=== PATIENT | female | born 1985 | race Caucasian/White ===

== ENCOUNTER → 2019-02-08 | Outpatient (CLI) | payer BC ==
[~2019-02-08] MED LIST: LORA10TA75 PO; META800T PO; TOPI25TA8 PO
[2019-02-08 13:34] LABS: BASOPHILS # (AUTO) 0.02 x10^3/uL (0-0.1); BASOPHILS % (AUTO) 0 % (0-1); EOSINOPHILS # (AUTO) 0.23 x10^3/uL (0-0.4); EOSINOPHILS % (AUTO) 2 % (1-7); LYMPHOCYTES # (AUTO) 1.49 x10^3/uL (1-3.4); LYMPHOCYTES % (AUTO) 15 % (22-44); MD NO; MEAN CORPUSCULAR HGB CONC 34.9 g/dL (32.4-35.8); MEAN CORPUSCULAR VOLUME 91.8 fL (80-100); MEAN PLATELET VOLUME 8.5 fL (7.4-10.4); MONOCYTES # (AUTO) 0.39 x10^3/uL (0.2-0.8); MONOCYTES % (AUTO) 4 % (2-9); NEUTROPHILS # (AUTO) 7.53 x10^3/uL (1.8-6.8); NEUTROPHILS % (AUTO) 78 % (42-75); PLATELET COUNT 310 x10^3/uL (130-400); RED BLOOD COUNT 4.75 x10^6/uL (3.82-5.3); RED CELL DISTRIBUTION WIDTH 12.2 % (9.6-15.2)
== END | disposition home or self-care (01) ==
LOC: STAR 12:49
PROVIDERS: ATTEND Obstetrics & Gynecology
DX: Z30.2 Encounter for sterilization (principal)
CPT/HCPCS: 36415; 84702; 85025

== ENCOUNTER 2019-02-21 11:02 | Day surgery (SDC) | payer BC ==
[~2019-02-21] VITALS: Ht 172.7 cm; Wt 87.3 kg
[2019-02-21] MEDS ORDERED: LACTATED RINGERS 1,000 ML IV SCH (11:29)
[2019-02-21 11:30] VITALS: BP 119/81
[2019-02-21 11:35] LABS: HCG UR SG 1.014 (1.003-1.030)
[2019-02-21] MEDS ORDERED: BUPIVACAINE/PF 0.25% ONE (12:11)
[2019-02-21] MEDS ORDERED: EPINEPHRINE 1 MG/ML, 1ML ONE (12:11)
[2019-02-21] MEDS ORDERED: FENTANYL PF 100 MCG/2ML ONE ×2 (13:03→14:05)
[2019-02-21] MEDS ORDERED: MIDAZOLAM 1 MG/ML, 2ML ONE (13:03)
[2019-02-21] MEDS ORDERED: CEFAZOLIN 1,000 MG ONE (13:05)
[2019-02-21] MEDS ORDERED: ROCURONIUM 10MG/ML,5ML ONE (13:05)
[2019-02-21] MEDS ORDERED: DEXAMETHASONE 4 MG/ML, 1ML ONE (13:05)
[2019-02-21] MEDS ORDERED: SUCCINYLCHOLINE 20 MG/ML, 10ML ONE (13:05)
[2019-02-21] MEDS ORDERED: PROPOFOL 10 MG/ML, 20ML ONE (13:05)
[2019-02-21] MEDS ORDERED: ONDANSETRON 2MG/ML, 2ML ONE (13:05)
[2019-02-21] MEDS ORDERED: PROMETHAZINE 25 MG/ML, 1ML IV PRN (13:30)
[2019-02-21] MEDS ORDERED: OXYcodone 5 MG/5 ML ORAL.SOL UDC PO PRN (13:30)
[2019-02-21] MEDS ORDERED: ALBUTEROL SULFATE 2.5 MG/3 ML NPPB PRN (13:30)
[2019-02-21] MEDS ORDERED: MEPERIDINE/PF 25MG/0.5ML IVPush PRN (13:30)
[2019-02-21] MEDS ORDERED: LABETALOL 5MG/ML, 20ML IV PRN (13:30)
[2019-02-21] MEDS ORDERED: ONDANSETRON 2MG/ML, 2ML IVPush PRN (13:30)
[2019-02-21] MEDS ORDERED: KETOROLAC 30 MG/1 ML IV PRN (13:30)
[2019-02-21] MEDS ORDERED: METOCLOPRAMIDE 5 MG/ML, 2ML IV PRN (13:30)
[2019-02-21] MEDS ORDERED: HYDROmorphone 1 MG/ML, 1ML INJ IV PRN (13:30)
[2019-02-21] MEDS ORDERED: FENTANYL PF 100 MCG/2ML IV PRN (13:30)
[2019-02-21] MEDS ORDERED: hydrALAzine 20 MG/ML, 1ML IV PRN (13:30)
[2019-02-21] MEDS ORDERED: KETOROLAC 30 MG/1 ML ONE (14:08)
[2019-02-21] MEDS ORDERED: ACETAMINOPHEN 325 MG TABLET ONE (14:18)
[2019-02-21] MEDS ORDERED: ACETAMINOPHEN 650 MG/20.3 ML UDC ONE (14:18)
[2019-02-21] MEDS ORDERED: OXYcodone 5 MG/5 ML ORAL.SOL UDC ONE (14:18)
[2019-02-21] MEDS ORDERED: ACETAMINOPHEN 325 MG TABLET PO ONE (15:00)
== END 2019-02-21 16:15 | disposition home or self-care (01) ==
LOC: OUT 11:02
PROVIDERS: ATTEND Obstetrics & Gynecology
DX: Z30.2 Encounter for sterilization (principal); Z31.41 Encounter for fertility testing; G43.909 Migraine, unspecified, not intractable, without status migrainosus; I89.0 Lymphedema, not elsewhere classified; F15.90 Other stimulant use, unspecified, uncomplicated
CPT/HCPCS: 58670; 81025; 88302; J0171; J0330; J0690; J1100; J1885; J2250; J2405; J2704; J3010; J3490